=== PATIENT | female | born 1990 | race Caucasian/White ===

== ENCOUNTER → 2020-08-24 13:20 | Outpatient (CLI) | payer OTHER, SELFPAY ==
--- NOTE | ~2020-08-24 | MR_ITS ---
EXAMINATION: MR knee LT wo con DATE: 08/24/2020 14:38 INDICATION: Acute onset right knee pain, bruising and swelling post injury one week prior TECHNIQUE: Magnetic resonance imaging (MRI) of the right knee was performed without intravenous contr ast. Sequences included coronal PD-weighted FSE, coronal PD-weighted FS FSE, sagittal T2-weighted FS E, sagittal PD-weighted FS FSE and axial PD weighted fat saturated FSE. COMPARISON: None. FINDINGS: Medial compartment: Medial meniscus is normal. Articular cartilage is normal. Lateral compartment: Lateral meniscus is normal. There is partial thickness chondral fissuring with underlying subarticula r edema along the medial aspect of the lateral tibial plateau along the shoulder the intercondylar em inence which could be either degenerative or sequela of an impaction injury given the history of rece nt trauma. Articular cartilage is otherwise normal. Patellofemoral compartment: Articular cartilage is normal. Ligaments and tendons: Anterior and posterior cruciate ligaments are normal. The fibular collateral ligament complex is norm al. High-grade if not complete tear of the medial patellar retinaculum which involves a large portion of the anterior medial collateral ligament. Quadriceps tendon is normal. There are bands of magic an gle artifact. Patellar tendon is normal but appears lax with some mild undulation along its course. T he visualized medial and lateral hamstring tendons as well as the iliotibial band are normal. Fluid: Small left knee joint effusion. There is prominent soft tissue edema along the anterior and medial as pects of the knee and extending cephalad along the periphery of the distal quadriceps muscles. No loo se osteochondral bodies identified. Small Hendricks's cyst. Osseous/other: Prominent marrow edema surrounding a low signal intensity nondisplaced impaction fracture line along the lateral nonarticular surface of the anterior lateral femoral condyle. Additional prominent marrow edema without definitive fracture line along the inferomedial aspect of the patella consistent with a patellar dislocation/relocation injury pattern. No pathologic marrow replacing process. IMPRESSION: 1. Constellation of findings consistent with a lateral patellar dislocation/relocation injury pattern including tear of the medial patellar retinaculum, inferomedial patellar bone contusion and nondispl aced impaction fracture at the lateral nonarticular surface of the anterior lateral femoral condyle. 2. Associated high-grade partial tear involving a significant anterior portion of the anterior medial collateral ligament. 3. Small region of chondral fissuring and prominent underlying marrow edema at the medial side of the lateral tibial plateau along the shoulder the intercondylar eminence which could be either degenerat anand or posttraumatic chondral injury with underlying bone contusion. Reviewed, dictated and finalized at location A. IMPRESSION: 1. Constellation of findings consistent with a lateral patellar dislocation/rel ocation injury pattern including tear of the medial patellar retinaculum, infer omedial patellar bone contusion and nondisplaced impaction fracture at the late ral nonarticular surface of the anterior lateral femoral condyle. 2. Associated high-grade partial tear involving a significant anterior portion of the anterior medial collateral ligament. 3. Small region of chondral fissuring and prominent underlying marrow edema at the medial side of the lateral tibial plateau along the shoulder the intercondy lar eminence which could be either degenerative or posttraumatic chondral injur y with underlying bone contusion.
== END ==
PROVIDERS: PCP Family Medicine; Visit Provider Orthopaedic Surgery
DX: S83.411A Sprain of medial collateral ligament of right knee, initial encounter (principal); X58.XXXA Exposure to other specified factors, initial encounter
CPT/HCPCS: 73721

== ENCOUNTER → 2021-03-22 15:08 | Outpatient (CLI) | payer OTHER, SELFPAY ==
--- NOTE | ~2021-03-22 | MR_ITS ---
EXAMINATION: MR knee LT wo con DATE: 03/22/2021 15:59 INDICATION: Left knee pain and instability TECHNIQUE: Magnetic resonance imaging (MRI) of the left knee was performed without intravenous contra st. Sequences included coronal PD-weighted FSE, coronal PD-weighted FS FSE, sagittal T2-weighted FSE , sagittal PD-weighted FS FSE and axial PD weighted fat saturated FSE. COMPARISON: 08/24/2020 FINDINGS: Medial compartment: Medial meniscus is normal. Articular cartilage is normal. Lateral compartment: Lateral meniscus is normal. Articular cartilage appears normal. The previous noted small region of pa rtial-thickness chondral fissuring along the anteromedial aspect of the lateral tibial plateau is martin nikita visualized the current study which may be due to the larger field of view imaging resulting in d ecreased resolution of the cartilage. Patellofemoral compartment: Articular cartilage is normal. Ligaments and tendons: Anterior and posterior cruciate ligaments are normal. The fibular collateral ligament complex is norm al. There is edema along the deep and superficial margins of the medial collateral ligament. The ante rior margin of the proximal portion of the ligament along its confluence with the medial patellofemor al retinaculum appears thickened and with increased signal of significantly less than on the prior st udy. Findings would be consistent with a likely recurrent low to moderate grade sprain. The patellar and quadriceps tendons are normal. The visualized medial and lateral hamstring tendons as well as the iliotibial band are normal. Fluid: Physiologic amount of fluid in the joint space. No loose osteochondral bodies identified. Osseous/other: No interval change in a 6 x 3 x 3 mm hyperintense lesion in the posterior metaphyseal region of the f emur with location and appearance most consistent with a small enchondroma. Otherwise normal marrow s ignal. No fracture or other pathologic marrow replacing process. IMPRESSION: 1. Recurrent low to moderate grade sprain/partial tear involving the proximal medial collateral ligam ent and medial side of the medial patellofemoral retinaculum. Reviewed, dictated and finalized at location A. IMPRESSION: 1. Recurrent low to moderate grade sprain/partial tear involving the proximal m edial collateral ligament and medial side of the medial patellofemoral retinacu lum.
== END ==
PROVIDERS: Visit Provider Orthopaedic Surgery
DX: M25.562 Pain in left knee (principal)
CPT/HCPCS: 73721